=== PATIENT | male | born 1950 | race Caucasian/White ===

== ENCOUNTER 2018-05-15 10:56 | Day surgery (SDC) | payer OTHER ==
[~2018-05-15] VITALS: Ht 180.3 cm; Wt 104.3 kg
[~2018-05-15 10:56] MED LIST: ALPRAZOLAM0.5 MG PO; AMITRIPTYLINE H50 MG PO; ANDROGEL1.25 GM TD; ANDROGEL2.5 GM TD; CYCLOBENZAPRINE10 MG PO; FENOFIBRATE160 MG PO; PROVENTIL HFA6.7 GM INH; RIZATRIPTAN10 MG PO; TRAMADOL HCL50 MG PO; ZITHROMAX250 MG PO; ZOLPIDEM TARTRA10 MG PO
--- NOTE | 2018-05-15 13:12 | NUR ---
05/15/18 1312 Tasia Miller 1306- PT ARRIVES TO PACU AWAKE AND TALKING WITH STAFF. PT REPORTS NO ABD PAIN OR NAUSEA. OXYGEN SAT HIGH 90'S TO 100% ON 3L VIA NC. 1308- OXYGEN TURNED OFF. OXYGEN SAT MID 90'S ON RA.
--- NOTE | 2018-05-17 22:04 | OR ---
[facility] [address], [place] [address] Signed DATE OF OPERATION: 05/15/2018 SURGEON: Valeriano Bolden MD PREOPERATIVE DIAGNOSES: Odynophagia and mild dysphagia. POSTOPERATIVE DIAGNOSES: 1. Normal-appearing esophagus and flap valve. 2. Pre-pyloric small ulcer. PROCEDURE: Esophagogastroduodenoscopy with biopsy. ANESTHESIA: Intravenous sedation, fentanyl 100 mcg, Versed 5 mg. INDICATIONS FOR PROCEDURE: A 67-year-old white man, patient of Dr. Daniel Crain at [facility]. He is known to me from the past as well, having undergone upper endoscopy in 2006. He was found to have a normal-appearing esophagus at that time. He does complain of dysphagia and odynophagia as well. He has some pain in the epigastric area. His dysphagia is poorly localized and mostly related to solid food and occasionally liquids were problematic as well. He has had no weight loss. He does have some occasional right upper abdominal pain. He is admitted at this time to undergo upper endoscopy to better characterize the source of his dysphagia and occasional odynophagia. He understands the risks of bleeding, infection, and perforation and wish to proceed. FINDINGS: Esophagus was entirely normal in its appearance. The GE junction appeared normal as well. There was a pre-pyloric antral ulcer, which was rather superficial and somewhat linear in configuration. It was firm upon biopsy. The stomach otherwise showed mild antral gastritis. There was no sign of obvious malignancy. The duodenum was normal. There was no sign of gastric outlet obstruction. DESCRIPTION OF PROCEDURE: The patient was brought to the endoscopy suite and placed in lateral decubitus position given intravenous sedation to the point of slurred speech and nystagmus. A bite block was placed. An Olympus video upper endoscope was passed in the Electronically Signed By: VALERIANO BOLDEN MD 05/17/18 2204 PATIENT NAME: NAMAN FERNANDEZ OPERATIVE REPORT DATE OF : 50 REPORT #: [id number] PHYSICIAN: VALERIANO BOLDEN MD PCP: SAM CRAIN DO REPORT IS CONFIDENTIAL AND NOT TO BE RELEASED WITHOUT AUTHORIZATION [facility] [address], [place] [address] Signed hypopharynx. The vocal cords were normal. The scope was advanced to the esophagus and throughout its length, it was entirely normal. No sign of stricture, neoplasm, Escamilla's epithelium, varices, or other issue. The scope was advanced to the stomach, which was insufflated with air. Rugal folds appeared normal as did the antral motility. In the antrum in the prepyloric area was a linear area highly suggestive of small ulceration. The scope was passed into the duodenum through the normal-appearing pylorus, 2nd, 3rd, and bulbar portions appeared reasonably normal. Biopsies were obtained to assess for celiac disease. The scope was withdrawn and then biopsies taken directly of the ulcerated area. He was able to bleed, but stopped promptly. Biopsies were additionally taken for CLOtest. Retroflex view was undertaken upon withdrawal of scope showing a normal appearing flap valve. No sign of hiatal hernia. The proximal stomach was normal. Scope was straightened and withdrawn and biopsies taken of the distal esophagus though appeared entirely normal. Further withdrawal of scope showed no sign of other abnormality and certainly no evidence of felinization of the esophagus to suggest the eosinophilic esophagitis or other abnormality. The scope was removed and the patient taken to recovery room in good condition. CONCLUDING DIAGNOSES: 1. Uncertain regarding odynophagia and dysphagia. No evidence of stricture or neoplasm or inflammatory change. 2. Pre-pyloric small ulcer. PLAN: We will recommend Carafate 1 g p.o. q.i.d. on empty stomach as well as Prilosec 20 mg p.o. daily. He will see me back in about 6 weeks. We will review his pathology reports particularly of the ulcer that was biopsied. MD WALLACE Urbina/MODL /[id number] cc: Daniel Crain MD Electronically Signed By: VALERIANO BOLDEN MD 05/17/18 2204 PATIENT NAME: NAMAN FERNANDEZ OPERATIVE REPORT DATE OF : 50 REPORT #: [id number] PHYSICIAN: VALERIANO BOLDEN MD PCP: SAM CRAIN DO REPORT IS CONFIDENTIAL AND NOT TO BE RELEASED WITHOUT AUTHORIZATION [address] [place] [address] Signed Copies: DANIEL CRAIN MD ~ Electronically Signed By: VALERIANO BOLDEN MD 05/17/18 2204 PATIENT NAME: NAMAN FERNANDEZ YARA OPERATIVE REPORT DATE OF : 50 REPORT #: [id number] PHYSICIAN: VALERIANO BOLDNE MD PCP: SAM CRAIN DO REPORT IS CONFIDENTIAL AND NOT TO BE RELEASED WITHOUT AUTHORIZATION
== END 2018-05-15 13:49 | disposition home or self-care (01) ==
LOC: DS 10:56 → OPS 10:56 → DS 12:00 → OPS 12:00
PROVIDERS: Surgery
PROC: 0DB78ZX Excision of Stomach, Pylorus, Via Natural or Artificial Opening Endoscopic, Diagnostic (ICD-10-PCS; 2018-05-15)
PROC: 0DB38ZX Excision of Lower Esophagus, Via Natural or Artificial Opening Endoscopic, Diagnostic (ICD-10-PCS; 2018-05-15)
PROC: 0DB98ZX Excision of Duodenum, Via Natural or Artificial Opening Endoscopic, Diagnostic (ICD-10-PCS; principal; 2018-05-15 12:00)
DX: K29.50 Unspecified chronic gastritis without bleeding (principal); E78.00 Pure hypercholesterolemia, unspecified; G47.30 Sleep apnea, unspecified; G43.909 Migraine, unspecified, not intractable, without status migrainosus; Z88.8 Allergy status to other drugs, medicaments and biological substances; Z88.6 Allergy status to analgesic agent; Z79.899 Other long term (current) drug therapy; Z86.010 Personal history of colon polyps; Z98.890 Other specified postprocedural states; Z99.89 Dependence on other enabling machines and devices
CPT/HCPCS: 88305; 99153; G0500; J2250; J3010; J7120

== ENCOUNTER 2021-03-06 15:29 | Emergency (ER) | payer MEDICARE, OTHER ==
[~2021-03-06] VITALS: Ht 180.3 cm; Wt 109.8 kg
[~2021-03-06 15:29] MED LIST changes: +CARAFATE1 GM PO; +IMITREX100 MG PO; +PRILOSEC OTC20 MG PO
== END 2021-03-06 17:00 | disposition home or self-care (01) ==
LOC: ED 15:29
DX: T60.3X1A Toxic effect of herbicides and fungicides, accidental (unintentional), initial encounter (principal); H10.213 Acute toxic conjunctivitis, bilateral; I10 Essential (primary) hypertension; G43.909 Migraine, unspecified, not intractable, without status migrainosus; Z88.6 Allergy status to analgesic agent; Z88.8 Allergy status to other drugs, medicaments and biological substances; Z79.899 Other long term (current) drug therapy; Z79.891 Long term (current) use of opiate analgesic
CPT/HCPCS: 99283

== ENCOUNTER 2024-07-28 11:52 | Day surgery (SDC) | payer OTHER ==
[~2024-07-28] VITALS: Ht 180.3 cm; Wt 100.5 kg
[~2024-07-28 11:52] MED LIST changes: +IBLOOD GLUCOSE TEST STRIP 1 EA TEST VI PRN; +LACTATED RINGER'S 1,000 ML IV SCH; +LIDOCAINE HCL 1% 5 ML SDV INJ ONE; +LIPITOR40 MG PO; +MIDAZOLAM HCL 5 MG/5 ML VIAL IV PRN; +OMEPRAZOLE20 MG PO; +fentaNYL citrate 100 MCG/2 ML VIAL IV PRN
[2024-07-28 12:25] VITALS: BP 152/79
[2024-07-28] MEDS ORDERED: MIDAZOLAM HCL 5 MG/5 ML VIAL ONE (12:48)
[2024-07-28] MEDS ORDERED: fentaNYL citrate 100 MCG/2 ML VIAL ONE (12:48)
--- NOTE | 2024-07-28 13:44 | NUR ---
07/28/24 1344 Sheets,Kayy 1338 PT ARRIVED TO PACU ON 3L VIA, PT TALKING TO RN. PT DENIES PAIN AND NAUSEA. RESP EVEN AND UNLABORED.
[2024-07-28 14:02] VITALS: BP 134/80
--- NOTE | 2024-07-29 11:00 | OR ---
[facility] [address] [place], [place] [address] Signed DATE OF OPERATION: 07/28/2024 SURGEON: Valeriano Bolden MD PREOPERATIVE DIAGNOSIS: Family history of colon cancer (mother and maternal grandmother). POSTOPERATIVE DIAGNOSIS: Small polyps x5. PROCEDURE: Total colonoscopy to cecum with cold morcellation polypectomy x4 and cold snare polypectomy x1. ANESTHESIA: Intravenous sedation; fentanyl 100 mcg and Versed 8 mg. INDICATION: This 73-year-old white man is a patient of JEAN-PIERRE Aquino at the [facility]. The patient underwent colonoscopy five years ago, which was normal. He has no current symptoms of bleeding, diarrhea, or constipation but does have family history of colon cancer in his mother and maternal grandmother. He is admitted for surveillance colonoscopy. He understands the risk of bleeding, infection, and perforation. FINDINGS: The prep was good. Complete colonoscopy was undertaken of the cecum. There were five polyps in total, one in the proximal left colon at the splenic flexure, another in the left colon, another in the sigmoid, another in the rectosigmoid and another in the mid rectum and the low rectum. All were excised completely. None were worrisome for cancer. The lowest in the rectum was a bit larger and required snare polypectomy and was quite clearly an adenoma. The others may have been hyperplastic only. DESCRIPTION OF PROCEDURE: The patient was brought to the endoscopy suite and placed in the lateral decubitus position, given intravenous sedation to the point of slurred speech and nystagmus. Digital rectal examination was normal. An Olympus video colonoscope was passed in the rectum and manipulated throughout the colon ultimately intubating the cecum itself. The ileocecal valve and appendiceal orifice were normal. Scope was withdrawn from that point and examination undertaken. Electronically Signed By: VALERIANO BOLDEN MD 07/29/24 [facility] PATIENT NAME: NAMAN FERNANDEZ OPERATIVE REPORT DATE OF : 50 REPORT #: [id number] PHYSICIAN: VALERIANO BOLDEN MD PCP: MICHELLE CRAIN MD REPORT IS CONFIDENTIAL AND NOT TO BE RELEASED WITHOUT AUTHORIZATION [facility] [address], [place] [address] Signed Irrigation was undertaken as necessary. At the splenic flexure, there was a small polyp, which was excised with cold snare technique. Further withdrawal showed a polyp in the left colon also excised similarly in the sigmoid and rectosigmoid as well. The mid rectum had a small hyperplastic appearing polyp, which was excised. The lowest part of the rectum had an 8 mm obvious adenoma, which was excised with cold snare technique. All the specimens were recovered and passed for pathology. The scope was removed and the patient was taken to the recovery room in good condition. CONCLUDING DIAGNOSIS: Polyps x5. PLAN: Recommend repeat colonoscopy in 3 to 5 years in particular given family history of colon cancer in mother and maternal grandmother. He will return to the ongoing care of JEAN-PIERRE Aquino at the [facility]. MD WALLACE Urbina/LORRAINE /[id number] cc: JEAN-PIERRE Aquino at the [place] Copies: ~ Electronically Signed By: VALERIANO BOLDEN MD 07/29/24 1100 PATIENT NAME: NAMAN FERNANDEZ OPERATIVE REPORT DATE OF : 50 REPORT #: [id number] PHYSICIAN: AVLERIANO BOLDEN MD PCP: MICHELLE CRAIN MD REPORT IS CONFIDENTIAL AND NOT TO BE RELEASED WITHOUT AUTHORIZATION
--- NOTE | 2024-07-30 15:38 | PATH ---
[facility] [address] [place] [address] Signed SPECIMEN(S): A RECTAL POLYP SPECIMEN(S): B SPLENIC FLEXURE COLON POLYP SPECIMEN(S): C SIGMOID POLYP SPECIMEN(S): D RECTOSIGMOID POLYP SPECIMEN(S): E PROXIMAL RECTAL POLYP SPECIMEN SOURCE: A. RECTAL POLYP B. SPLENIC FLEXURE COLON POLYP C. SIGMOID POLYP D. RECTOSIGMOID POLYP E. PROXIMAL RECTAL POLYP CLINICAL HISTORY: History of polyps, family history of colon cancer FINAL PATHOLOGIC DIAGNOSIS: A. Rectal polyp, biopsy: - Hyperplastic polyp. B. Splenic flexure polyp, biopsy: - Tubular adenoma. C. Sigmoid polyp, biopsy: - Tubular adenoma. D. Rectosigmoid polyp, biopsies: - Fragments of hyperplastic polyp. E. Proximal rectal polyp, biopsy: - Tubular adenoma. AMB MICROSCOPIC EXAMINATION: Histologic sections of all submitted blocks are examined by light microscopy. These findings, together with the gross examination, support the pathologic diagnosis. GROSS DESCRIPTION: A. The specimen, labeled and designated "Lam Fernandez, per requisition rectum polypectomy," is received in formalin and consists of a single lane tissue fragment that is 0.3 cm in greatest dimension. The specimen is entirely submitted in cassette A1. B. The specimen, labeled and designated "Lam Fernandez, per requisition splenic flexure polypectomy," is received in formalin and consists of a single lane PATIENT NAME: NAMAN FERNANDEZ PATHOLOGY DATE OF : 50 REPORT #: [id number] PHYSICIAN: AVEL PATHOLOGY PCP: MICHELLE CRAIN MD REPORT IS CONFIDENTIAL AND NOT TO BE RELEASED WITHOUT AUTHORIZATION [facility] [address] [place], [place] [address] Signed tissue fragment that is 0.4 cm in greatest dimension. The specimen is entirely submitted in cassette B1. C. The specimen, labeled and designated "Lam Fernandez, per requisition sigmoid polypectomy," is received in formalin and consists of a single lane tissue fragment that is 0.4 cm in greatest dimension. The specimen is entirely submitted in cassette C1. D. The specimen, labeled and designated "Lam Fernandez, per requisition rectosigmoid polypectomy," is received in formalin and consists of 2 lane tissue fragments ranging from 0.3 to 0.4 cm in greatest dimension. The specimen is entirely submitted in cassette D1. E. The specimen, labeled and designated "Lam Fernandez, per requisition proximal rectum polypectomy," is received in formalin and consists of a single lane tissue fragment that is 0.4 cm in greatest dimension. The specimen is entirely submitted in cassette E1. AA (under the direct supervision of a pathologist) The Gross Description was prepared using a voice recognition system. The report was reviewed for accuracy; however, sound-alike word errors, addition and/or deletions may occur. If there is any question about this report, please contact Client Services. ADDITIONAL NOTES: Immunohistochemical and/or in situ hybridization studies if performed in this case included appropriate positive controls that reacted as expected. This test was developed and its performance characteristics determined by [facility]. It has not been cleared or approved by the U.S. Food and Drug Administration. The FDA has determined that such clearance or approval is not necessary. This test is used for clinical purposes. It should not be regarded as investigational or for research. [facility] is certified under the Clinical Laboratory Improvement Amendments of 1988 (CLIA) as qualified to perform high complexity clinical laboratory testing. PERFORMING LABORATORY: Technical component was performed by [facility], [address] [place]án[place], [place] [address] (CLIA# [id number]). Professional interpretation was performed by [facility] [address] [id number] Diagnostician: Yola Rose MD Pathologist PATIENT NAME: NAMAN FERNANDEZ PATHOLOGY DATE OF : 50 REPORT #: [id number] PHYSICIAN: AVEL PATHOLOGY PCP: MICHELLE CRAIN MD REPORT IS CONFIDENTIAL AND NOT TO BE RELEASED WITHOUT AUTHORIZATION [facility] [address] [place] [id number] Signed Electronically Signed 07/30/2024 Copies: ~ PATIENT NAME: NAMAN FERNANDEZ PATHOLOGY DATE OF : 50 REPORT #: [id number] PHYSICIAN: AVEL ARCHER PCP: MICHELLE CRAIN MD REPORT IS CONFIDENTIAL AND NOT TO BE RELEASED WITHOUT AUTHORIZATION
== END 2024-07-28 14:22 | disposition home or self-care (01) ==
LOC: DS 11:52 → OPS 11:52 → DS 13:00 → OPS 13:00
PROVIDERS: ATTEND Surgery
PROC: 0DBL8ZZ Excision of Transverse Colon, Via Natural or Artificial Opening Endoscopic (ICD-10-PCS; 2024-07-28)
PROC: 0DBN8ZZ Excision of Sigmoid Colon, Via Natural or Artificial Opening Endoscopic (ICD-10-PCS; 2024-07-28)
PROC: 0DBP8ZZ Excision of Rectum, Via Natural or Artificial Opening Endoscopic (ICD-10-PCS; principal; 2024-07-28 13:00)
DX: Z12.11 Encounter for screening for malignant neoplasm of colon (principal); D12.3 Benign neoplasm of transverse colon; D12.5 Benign neoplasm of sigmoid colon; D12.8 Benign neoplasm of rectum; E78.5 Hyperlipidemia, unspecified; Z80.0 Family history of malignant neoplasm of digestive organs; Z87.11 Personal history of peptic ulcer disease; Z88.8 Allergy status to other drugs, medicaments and biological substances; Z79.899 Other long term (current) drug therapy
CPT/HCPCS: 88305; 99153; G0500; J2250; J3010; J7121

== ENCOUNTER 2024-09-17 12:33 | Emergency (ER) | payer OTHER ==
[~2024-09-17] VITALS: Ht 180.3 cm; Wt 106.6 kg
[~2024-09-17 12:33] MED LIST changes: -IBLOOD GLUCOSE TEST STRIP 1 EA TEST VI PRN; -LACTATED RINGER'S 1,000 ML IV SCH; -LIDOCAINE HCL 1% 5 ML SDV INJ ONE; -MIDAZOLAM HCL 5 MG/5 ML VIAL IV PRN; -fentaNYL citrate 100 MCG/2 ML VIAL IV PRN
[2024-09-17 17:50] VITALS: BP 124/80
== END 2024-09-17 17:50 | disposition home or self-care (01) ==
LOC: ED 12:33
DX: J34.89 Other specified disorders of nose and nasal sinuses (principal); I10 Essential (primary) hypertension; Z88.8 Allergy status to other drugs, medicaments and biological substances; Z79.899 Other long term (current) drug therapy
CPT/HCPCS: 99282

== ENCOUNTER 2025-02-03 11:36 | Emergency (ER) | payer OTHER ==
[~2025-02-03] VITALS: Ht 180.3 cm; Wt 100.4 kg
[2025-02-03] MEDS ORDERED: ondansetron HCL 4 MG/2 ML VIAL IV PRN (11:45)
[2025-02-03 11:58] LABS: BILIRUBIN, URINE NEGATIVE (negative); BLOOD/HGB, URINE NEGATIVE (Negative); KETONE, URINE NEGATIVE (Negative); LEUK ESTERASE, URINE NEGATIVE (negative); NITRITE, URINE NEGATIVE (negative); PH, URINE 6.5 (5-7)
[2025-02-03 12:16] LABS: BASOPHILS 1.1 % (0-2); EOSINOPHILS 2.1 % (0-6); HEMATOCRIT 40.5 % (35.0-50.0); HEMOGLOBIN 14.1 g/dL (12.0-18.0); LYMPHOCYTES 29.7 % (24-44); MCH 30.2 (27-36); MCHC 34.9 g/dl (30-36); MCV 86.5 fl (81-99); MONOCYTES 7.6 % (0-12); NEUTROPHILS 59.5 % (39-80); PLATELET COUNT 173 K/uL (140-440); RBC 4.68 M/ul (4.3-5.7); RDW 14.1 (10.5-15.0)
[2025-02-03 12:31] LABS: ALBUMIN 4.2 g/dL (3.4-5.0); ALBUMIN/GLOBULIN RATIO 1.4 (1.1-2.4); ANION GAP 12.1 (7-21); BILIRUBIN, TOTAL 0.7 mg/dL (0.2-1.0); BUN/CREATININE RATIO 13.39 (6.0-28.6); CALCIUM 8.9 mg/dL (8.5-10.1); CREATININE, SERUM 1.12 mg/dL (0.70-1.30); POTASSIUM 4.1 mmol/L (3.5-5.1); PROTEIN, TOTAL 7.2 g/dL (6.4-8.2)
[2025-02-03] MEDS ORDERED: CYCLOBENZAPRINE10 MG PO (13:50)
[2025-02-03 14:09] VITALS: BP 133/77
== END 2025-02-03 14:10 | disposition home or self-care (01) ==
LOC: ED 11:36
PROVIDERS: Emergency Medicine
DX: M54.9 Dorsalgia, unspecified (principal); I10 Essential (primary) hypertension; Z88.8 Allergy status to other drugs, medicaments and biological substances; Z79.899 Other long term (current) drug therapy
CPT/HCPCS: 36415; 74176; 80053; 81003; 85025; 99284-25

== ENCOUNTER 2025-02-05 12:56 | Emergency (ER) | payer OTHER, MEDICARE | END 2025-02-05 14:20 | disposition home or self-care (01) | LOC: ED 12:56 | DX: M54.9 Dorsalgia, unspecified (principal); I10 Essential (primary) hypertension; Z79.899 Other long term (current) drug therapy ==